=== PATIENT | male | born 1990 | race Asian ===

== ENCOUNTER 2018-06-18 08:20 | Inpatient (IN) | payer BC ==
[~2018-06-18] VITALS: Ht 180.3 cm; Wt 111.1 kg
[2018-06-18 08:20] VITALS: BP_SYST 149
--- NOTE | 2018-06-18 08:20 | NUR ---
BROUGHT BACK TO BED #7 AND TRIAGED. REPORT GIVEN TO FARRAH
--- NOTE | 2018-06-18 08:30 | NUR ---
# 20 gauge angiocath placed to LT AC. Use of asceptic technique. Opsite placed over site. Blood return noted. Flushed with 10 cc of normal saline. No evidence of infiltration noted. Patient tolerated well.
--- NOTE | 2018-06-18 08:30 | NUR ---
Patient comes to ER in personal vehicle, AOx4, verbal and ambulatory. Patient has complaint of RT side lower abdominal pain x4days, patient states that the pain was worse in the past few days but is now at 4/10. Patient is afebrile, last BM was this morning. No other complaint or injury at this time.
[2018-06-18] MEDS ORDERED: NACL 0.9% 1,000 ML IV ONE (08:39)
[2018-06-18] MEDS ORDERED: NACL 0.9% 1,000 ML IV SCH (08:39)
--- NOTE | 2018-06-18 08:41 | NUR ---
DR REAL AT BEDSIDE FOR EVALAUTION
[2018-06-18] MEDS ORDERED: MORPHINE 4 MG/ML INJ. SYRINGE IVP ONE (08:45)
[2018-06-18] MEDS ORDERED: ONDANSETRON HCL 4 MG/2 ML VIAL IVP ONE (08:45)
[2018-06-18] MEDS ORDERED: metroNIDAZOLE 500 mg/NS 100 ML IV ONE (09:30)
[2018-06-18] MEDS ORDERED: cefTRIAXone 1 GM IVPB PREMIX 50 ML IV ONE (09:30)
[2018-06-18 09:33] LABS: BASOPHILS # (AUTO) 0.1 K/uL (0.0-0.2); BASOPHILS % (AUTO) 1.3 % (0.0-2.0); EOSINOPHILS # (AUTO) 0.3 K/uL (0.0-0.4); EOSINOPHILS % (AUTO) 3.8 % (0.0-4.0); HEMATOCRIT 45.9 % (36-54); HEMOGLOBIN 15.9 g/dL (14.0-18.0); LYMPHOCYTES # (AUTO) 1.7 K/uL (1.0-5.5); MEAN CORPUSCULAR HEMOGLOBIN 32 pg (27-31); MEAN CORPUSCULAR HGB CONC 35 % (32-36); MEAN CORPUSCULAR VOLUME 92 fL (79.0-98.0); MONOCYTES # (AUTO) 0.5 K/uL (0.0-1.0); MONOCYTES % (AUTO) 6.9 % (1.7-9.3); NEUTROPHILS # (AUTO) 4.5 K/uL (1.8-7.7); PLATELET COUNT (AUTO) 344 K/uL (130-430); RED BLOOD CELL COUNT(AUTO) 4.98 MIL/uL (4.2-6.2); RED CELL DISTRIBUTION WIDTH 12.6 % (9.0-15.0)
[2018-06-18] MEDS ORDERED: D5/0.45 NS 1,000 ML IV SCH (09:45)
[2018-06-18 09:46] LABS: BILIRUBIN,URINE NEGATIVE (NEGATIVE); BLOOD, URINE NEGATIVE (NEGATIVE); CLARITY/URINE CLEAR (CLEAR); COLOR,URINE YELLOW (YELLOW); GLUCOSE,URINE NEGATIVE (NEGATIVE); KETONES,URINE NEGATIVE (NEGATIVE); LEUKOCYTE ESTERASE ,URINE NEGATIVE (NEGATIVE); NITRITE, URINE NEGATIVE (NEGATIVE); PROTEIN URINE NEGATIVE (NEGATIVE); UROBILINOGEN,URINE 0.2 (0.2-1.0)
[2018-06-18 09:48] LABS: CALCIUM 9.4 mg/dL (8.4-11.0); CREATININE 0.87 mg/dL (0.55-1.30); POTASSIUM 3.8 mmol/L (3.5-5.1)
[2018-06-18 09:51] LABS: PROTHROMBIN TIME 9.9 SECS (9.5-12.5)
--- NOTE | 2018-06-18 10:00 | NUR ---
Medicated per MD orders. IVF infusing with no s/s of infiltration at this time. Will cont to monitor
[2018-06-18 10:05] LABS: ALBUMIN 3.8 g/dL (3.4-4.8); TOTAL BILIRUBIN 0.5 mg/dL (0.0-1.0)
[2018-06-18] MEDS ORDERED: DIPHENHYDRAMINE INJ 50 MG/ML VIAL IVP ONE (10:15)
--- NOTE | 2018-06-18 10:51 | NUR ---
Patient will be admitted to care of DR SUBRAMANIAN. Admitted to MED SURG unit. Will go to room 125B. Belongings list completed. Summary report printed. Report CALLED TO MACKENZIE
--- NOTE | 2018-06-18 10:57 | NUR ---
Patient will be admitted to care of Dr Guthrie. Admitted to [facility] unit. Will go to room [facility] 125B. Belongings list completed. Summary report printed. Report called in to [facility] ALIYAH Elizabeth.
--- NOTE | 2018-06-18 10:58 | NUR ---
ADMISSION NOTE Received patient from ER via sarah, received report from ROSANNA LY. Patient admitted with diagnosis of APPENDICITIS. Patient oriented to hospital routine, call light, toileting and safety-patient verbalized understanding.
[2018-06-18 11:08] VITALS: BP_SYST 143
--- NOTE | 2018-06-18 11:10 | NUR ---
Opening Note received bedside SBAR report from admitting RN, patient resting in bed, patient reports pain is controlled at this time, no acute distress noted, patients mother Estee at bedside, patient educated on use of call light and asked to call for assistance, patient verbalized understanding, call light in reach, patient educated on use on bed alarm for patient safety, patient refusing bed alarm, bed in low and locked position.
--- NOTE | 2018-06-18 11:52 | NUR ---
spoke with physician spoke with Dr. Mary Guthrie, informed him of patient complaint of pain 09/24, new medication orders received, verified with telephone read back.
[2018-06-18 12:00] VITALS: BP_SYST 143
[2018-06-18] MEDS ORDERED: HYDROmorphone 2 MG/ML VIAL IVP PRN ×2 (12:00→15:00)
--- NOTE | 2018-06-18 12:55 | NUR ---
to OR patient taken to OR via gurjase and RN, no acute distress noted.
[2018-06-18] MEDS ORDERED: ROCURONIUM BROMIDE 10 MG/ML (ZEMURON) IV ONE (13:25)
[2018-06-18] MEDS ORDERED: fentaNYL CITRATE/PF 100 MCG/2 ML AMP IVP ONE (13:25)
[2018-06-18] MEDS ORDERED: LR 1,000 ML IV.SOLN IV ONE (13:25)
[2018-06-18] MEDS ORDERED: LIDOCAINE 2%, 20 ML MDV INJ ONE (13:25)
[2018-06-18] MEDS ORDERED: SEVOFLURANE 15 MIN GAS INH ONE (13:25)
[2018-06-18] MEDS ORDERED: GLYCOPYRROLATE 0.2 MG/ML VIAL IJ ONE (13:25)
[2018-06-18] MEDS ORDERED: WATER FOR IRRIGATION,STERILE 1,000 ML IRRIG.SOLN IR ONE (13:25)
[2018-06-18] MEDS ORDERED: NEOSTIGMINE METHYLSULFATE 1 MG/ML, 10 ML VIAL IVP ONE (13:25)
[2018-06-18] MEDS ORDERED: PROPOFOL 200MG/ 20ML VIAL (DIPRIVAN) IV ONE (13:25)
[2018-06-18] MEDS ORDERED: MIDAZOLAM HCL 5 MG/5 ML VIAL IVP ONE (13:25)
[2018-06-18] MEDS ORDERED: BUPIVACAINE /EPINEPHRINE/PF 0.5% 30 ML VIAL INJ ONE (13:25)
[2018-06-18] MEDS ORDERED: ONDANSETRON HCL 4 MG/2 ML VIAL IVP PRN (15:00)
[2018-06-18] MEDS ORDERED: LORazepam 2 MG/ML VIAL IVP PRN (15:00)
[2018-06-18] MEDS: D5/0.45 NS 1,000 ML IV SCH (15:15)
[2018-06-18] MEDS: fentaNYL CITRATE/PF 100 MCG/2 ML AMP IVP PRN ×2 (16:00→16:15)
[2018-06-18] MEDS ORDERED: fentaNYL CITRATE/PF 100 MCG/2 ML AMP ONE (16:06)
[2018-06-18 16:30] VITALS: BP_SYST 152
--- NOTE | 2018-06-18 16:30 | NUR ---
back from OR patient brought back to room via gurney, no acute distress noted, patient states that pain is controlled at this time, IV fluid infusing well, no redness or swelling at IV site, four abdominal incision sites to abdomen, no bleeding, patient provided water and jello, patients mother Estee notified that patient is back in room.
[2018-06-18] MEDS: HYDROmorphone 1 MG INJ. 1 MG/ML AMPUL IVP PRN (17:19)
--- NOTE | 2018-06-18 17:28 | NUR ---
Dietary patient tolerating clear liquids well, patient ate two jello's and water/juice, patient denies any nausea, patient requesting to be advanced to full liquid for dinner, orders to advance diet as tolerated, patient advanced to full liquid diet.
--- NOTE | 2018-06-18 18:15 | NUR ---
PAGED PAGED ALEJANDRA GONZALSE AT [phone] SPOKE WITH OLIVER.
--- NOTE | 2018-06-18 18:39 | NUR ---
Spoke with Physician spoke with Dr. Mary Guthrie, informed him that patient was given 1mg dilaudid at 1719, informed him that patient is currently complaining of pain 8/10 to abdomen, new medication orders received.
[2018-06-18] MEDS ORDERED: HYDROmorphone 1 MG INJ. 1 MG/ML AMPUL IVP ONE (19:00)
--- NOTE | 2018-06-18 19:18 | NUR ---
Closing Note bedside SBAR report given to receiving RN, patient resting in bed, no acute distress noted, patient reports pain is controlled at this time, patients girlfriend at bedside, patient educated on use of call light and asked to call for assistance, patient verbalized understanding, call light in reach, patient educated on use of bed alarm for patient safety, patient refusing bed alarm, bed in low and locked position, care endorsed.
--- NOTE | 2018-06-18 19:30 | NUR ---
INITIAL NOTES RECEIVED HANDOFF REPORT FROM OFFGOING NURSE AT THE BEDSIDE. PATIENT IS RESTING COMFORTABLY IN BED, AWAKE AND ALERT. NO SOB, NO ACUTE DISTRESS, NO COMPLAINTS OF PAIN, BUT STATES HE HAS MILD DISCOMFORT WITH MOVEMENT. BED IS LOCKED, IN THE LOWEST POSITION, 2X SIDE RAILS UP. PATIENT REFUSES BED ALARM AT THIS TIME. CALL LIGHT IS WITHIN REACH. WILL CONTINUE WITH PLAN OF CARE. GIRLFRIEND IS AT THE BEDSIDE. ENCOURAGED PATIENT TO AMBULATE IF ABLE TO TOLERATE, BUT PATIENT REFUSES AT THIS TIME, STATING THAT HE HAS PAIN WITH MOVEMENT. WILL CONTINUE TO ENCOURAGE PATIENT.
[2018-06-18] MEDS: HYDROcodone/ACETAMIN 5-325 MG TAB (NORCO/ VICODIN) PO PRN (19:55)
[2018-06-18 20:00] VITALS: BP_SYST 127
--- NOTE | 2018-06-18 21:00 | NUR ---
patient able to demonstrate proper incentive spirometer use. reaches 2000ml at this time. encouraged patient to use the incentive spirometer frequently.
[2018-06-18] MEDS: metroNIDAZOLE 500 mg/NS 100 ML IV SCH (21:43)
--- NOTE | 2018-06-18 22:35 | NUR ---
PATIENT RESTING COMFORTABLY IN BED WITH EYES CLOSED. BREATHING EVEN AND UNLABORED WITH VISIBLE CHEST RISE AND FALL NOTED. NO SOB, NO ACUTE DISTRESS, NO SIGNS OF PAIN OR FACIAL GRIMACING NOTED. IV ANTIBIOTIC INFUSING VIA IVPB AT THE ORDERED RATE, SEE EMAR. BED IS LOCKED, IN THE LOWEST POSITION, 2X SIDE RAILS UP, BED ALARM IS ON. CALL LIGHT IS WITHIN REACH. GIRLFRIEND IS AT THE BEDSIDE.
[2018-06-19] MEDS: HYDROcodone/ACETAMIN 5-325 MG TAB (NORCO/ VICODIN) PO PRN ×3 (00:06→10:22)
[2018-06-19] MEDS: D5/0.45 NS 1,000 ML IV SCH ×3 (00:06→21:45)
[2018-06-19 00:18] VITALS: BP_SYST 130
--- NOTE | 2018-06-19 00:52 | NUR ---
Patient resting comfortably in bed, breathing even and unlabored, eyes closed. No SOB, no acute distress, no signs of pain or facial grimacing noted. Bed is locked, in the lowest position, 2x side rails up, bed alarm is on. Call light is within reach. Girlfriend is at the bedside, sleeping.
--- NOTE | 2018-06-19 03:12 | NUR ---
patient resting comfortably in bed. eyes closed. breathing even and unlabored with visible chest rise and fall noted. no sob, no acute distress, no signs of pain or facial grimacing noted. Bed is locked, lowest position, 2x side rails up, bed alarm is on. Call light within reach. girlfriend resting at the bedside.
--- NOTE | 2018-06-19 04:45 | NUR ---
Patient ambulated to the restroom and back to bed. Had an episode of BM. Now resting comfortably in bed. Urinal emptied as needed.
[2018-06-19] MEDS: metroNIDAZOLE 500 mg/NS 100 ML IV SCH ×3 (04:52→21:17)
--- NOTE | 2018-06-19 06:34 | NUR ---
Closing notes Patient is resting comfortably in bed, eyes closed. Breathing even and unlabored with visible chest rise and fall noted. No SOB, no acute distress, no signs of pain or facial grimacing noted. IV fluids infusing at the ordered rate, see eMAR for details. Bed is locked, in the lowest position, 2x side rails up. Call light is within reach. Fall and safety precautions maintained. All needs have been met during this shift. Will endorse care to oncoming dayshift nurse. Girlfriend is at the bedside.
[2018-06-19 06:51] LABS: BASOPHILS % (AUTO) 0.4 % (0.0-2.0); EOSINOPHILS # (AUTO) 0.2 K/uL (0.0-0.4); EOSINOPHILS % (AUTO) 2.6 % (0.0-4.0); HEMOGLOBIN 14.3 g/dL (14.0-18.0); LYMPHOCYTES # (AUTO) 1.8 K/uL (1.0-5.5); LYMPHOCYTES % (AUTO) 18.9 % (20.5-51.5); MEAN CORPUSCULAR HEMOGLOBIN 32 pg (27-31); MEAN CORPUSCULAR HGB CONC 34 % (32-36); MEAN CORPUSCULAR VOLUME 93 fL (79.0-98.0); MONOCYTES # (AUTO) 0.6 K/uL (0.0-1.0); MONOCYTES % (AUTO) 6.5 % (1.7-9.3); NEUTROPHILS # (AUTO) 6.7 K/uL (1.8-7.7); NEUTROPHILS % (AUTO) 71.6 % (40.0-70.0); PLATELET COUNT (AUTO) 302 K/uL (130-430); RED BLOOD CELL COUNT(AUTO) 4.51 MIL/uL (4.2-6.2); RED CELL DISTRIBUTION WIDTH 12.5 % (9.0-15.0)
[2018-06-19 07:29] LABS: WHITE BLOOD COUNT (AUTO) 9.4 K/uL (4.8-10.8)
[2018-06-19 07:43] LABS: CALCIUM 9.1 mg/dL (8.4-11.0); CREATININE 0.86 mg/dL (0.55-1.30); POTASSIUM 3.6 mmol/L (3.5-5.1)
--- NOTE | 2018-06-19 07:45 | NUR ---
Opening Note: Patient laying in bed resting, significant other at bedside. Patient denies pain and discomfort at this time. Breathing is even and unlabored with no distress noted. IV patent and intact running IVF per MD orders, no signs of infiltration noted. Safety precautions in place; bed in lowest position, wheels locked, side rails x3, bed alarm activated and call light within reach. No needs at this time. Will continue to monitor.
[2018-06-19 08:23] VITALS: BP_SYST 128
[2018-06-19] MEDS: HYDROmorphone 1 MG INJ. 1 MG/ML AMPUL IVP PRN ×2 (08:26→13:40)
[2018-06-19] MEDS: cefTRIAXone 1 GM IVPB PREMIX 50 ML IV SCH (10:09)
--- NOTE | 2018-06-19 11:42 | NUR ---
Rounds: Patient in bed resting, significant other at bedside. IVF bag changed, no signs of infiltration. Morning medications tolerated well. Safety precautions in place and call light within reach. No needs at this time. Will continue to monitor.
[2018-06-19 12:33] VITALS: BP_SYST 126
--- NOTE | 2018-06-19 14:13 | NUR ---
Rounds: Patient in bed resting. Patient denies pain and discomfort. Will continue to monitor.
--- NOTE | 2018-06-19 16:17 | NUR ---
Rounds: Patient in bed resting. Patient denies pain and discomfort. Breathing is even and unlabored. IVF infusing with no signs of infiltration. Safety precautions in place and call light within reach. Will continue to monitor.
[2018-06-19 17:15] VITALS: BP_SYST 132
[2018-06-19] MEDS ORDERED: HYDROcodone/ACETAMIN 10-325 MG TAB PO PRN (17:15)
--- NOTE | 2018-06-19 17:34 | NUR ---
Incentive Spirometer: Patient educated on use of incentive spirometer. Patient verbalized understanding and return demonstrated.
--- NOTE | 2018-06-19 18:50 | NUR ---
Closing Note: Patient laying in bed resting, significant other at bedside. Patient denies pain and discomfort at this time. Breathing is even and unlabored with no distress noted. IV patent and intact running IVF per MD orders, no signs of infiltration noted. Safety precautions in place; bed in lowest position, wheels locked, side rails x3, bed alarm activated and call light within reach. All needs met. Will endorse plan of care to NOC, nurse.
[2018-06-19 19:00] VITALS: BP_SYST 133
--- NOTE | 2018-06-19 19:00 | NUR ---
change of shift.pt.present s/p surgery;appendectomy.incision sites x3.incisions open to air.iv access;iv fluids infusing. pt's diet status advanced;regular diet;pt.presents food from home.no c/o pain,nausea.general status stable.respiratory status stable.call light/telephone w/in the reach of the pt.
[2018-06-19 20:00] VITALS: BP_SYST 133
--- NOTE | 2018-06-19 20:00 | NUR ---
pt.assessed.v/s assessed;values w/i normal limits.i have noted the o2-sat%=93-94%@hussein air.i have apprised the pt./and demonstrated that the pt.to attempt deep breathing 2-3 x pr hour.pt.is utilizing the incentive spirometer.i have assessed;auscultated the abdomen bowel sounds.i have inquired if the pt.presents abdomen gas build up.pt.has stated yes.to attend to bowel gas relief.i have apprised the pt.that snacks/beverages are available w/i the shift.no request posited@this hour.general status stable.respiratory status stable. pt.capable to reposition self.call light/telephone placed w/in the reach of the pt.
[2018-06-19] MEDS: SIMETHICONE 80 MG TAB.CHEW PO SCH (21:12)
[2018-06-19] MEDS: OXYCODONE/ACETAMINOPHEN 5-325 TABLET PO PRN (21:15)
--- NOTE | 2018-06-19 21:15 | NUR ---
2100p medications administered.percocet;10/325mg po:to f/u re;pain medication efficacy per pain mgx protocol.i paged ;a i apprised of the pt's status:abdomen gas build-up. ordered simethicone:80mg po ac/hs. i have administered the initial dose.no additional requests@this hour.
--- NOTE | 2018-06-19 22:00 | NUR ---
pt.assessed.pt.presents quiescent affect;calm.viewing tv programing via telephone.i have changed the iv fluids bag. no requests posited @this hour.pt.capable to reposition self.general status stable.respiratory status stable:o2-sat% =95%@room air.call light /telephone placed w/in the reach of the pt.
--- NOTE | 2018-06-20 | NUR ---
pt.assessed.v/s assessed;values w/in normal limits.i inquired r;pain mgx.pt.stated pain present but tolerable.i have inquired re;abdomen gas discomfort pt.stated the simethicone provided relief.general status stable.respiratory status stable:o2-sat% =95%.pt.capable to reposition self.call light/telephone w/in the reach of the pt.
[2018-06-20 01:02] VITALS: BP_SYST 129
--- NOTE | 2018-06-20 02:00 | NUR ---
pt.assessed.pt.presents quiescent affect;calm,somnolent.iv fluid access assessed;intact;patent.iv fluids infusing. general status stable.respiratory status stable.call light/telephone w/in the reach of the pt.
--- NOTE | 2018-06-20 03:58 | NUR ---
pt.assessed.pt.presents quiescent affect;calm,somnolent.pt.capable to reposition self.iv fluids infusing. general status stable.respiratory status stable.call light/telephone w/in the reach of the pt.
[2018-06-20] MEDS: OXYCODONE/ACETAMINOPHEN 5-325 TABLET PO PRN (04:22)
[2018-06-20] MEDS: metroNIDAZOLE 500 mg/NS 100 ML IV SCH (05:35)
[2018-06-20 06:43] LABS: BASOPHILS % (AUTO) 0.5 % (0.0-2.0); EOSINOPHILS # (AUTO) 0.4 K/uL (0.0-0.4); EOSINOPHILS % (AUTO) 4.7 % (0.0-4.0); HEMATOCRIT 43.1 % (36-54); HEMOGLOBIN 15.2 g/dL (14.0-18.0); LYMPHOCYTES # (AUTO) 1.3 K/uL (1.0-5.5); LYMPHOCYTES % (AUTO) 17.5 % (20.5-51.5); MEAN CORPUSCULAR HEMOGLOBIN 32 pg (27-31); MEAN CORPUSCULAR HGB CONC 35 % (32-36); MEAN CORPUSCULAR VOLUME 92 fL (79.0-98.0); MONOCYTES # (AUTO) 0.6 K/uL (0.0-1.0); MONOCYTES % (AUTO) 7.4 % (1.7-9.3); NEUTROPHILS # (AUTO) 5.2 K/uL (1.8-7.7); NEUTROPHILS % (AUTO) 69.9 % (40.0-70.0); PLATELET COUNT (AUTO) 311 K/uL (130-430); RED BLOOD CELL COUNT(AUTO) 4.69 MIL/uL (4.2-6.2); RED CELL DISTRIBUTION WIDTH 12.3 % (9.0-15.0); WHITE BLOOD COUNT (AUTO) 7.5 K/uL (4.8-10.8)
--- NOTE | 2018-06-20 06:44 | NUR ---
pt.assessed.pt.presents quiescent affect;calm,somnolent.pt had requested medication;pain.i have administered percocet;5/325mg po. i have administered th 0600a dose;flagyl;abx;ivpb.no requests posited per pt@this hour.general status stable.respiratory status stable. pt.capable to reposition self.call light/telephone w/in the reach of the pt.
[2018-06-20 06:57] LABS: CALCIUM 8.7 mg/dL (8.4-11.0); CREATININE 0.94 mg/dL (0.55-1.30); POTASSIUM 3.9 mmol/L (3.5-5.1)
[2018-06-20 07:08] LABS: ALBUMIN 3.2 g/dL (3.4-4.8); TOTAL BILIRUBIN 0.5 mg/dL (0.0-1.0)
--- NOTE | 2018-06-20 07:29 | NUR ---
Opening Note received bedside SBAR report from police shift commander RN, patient resting in bed, no acute distress noted, patient educated on use of call light and asked to call for assistance, patient verbalized understanding, call light in reach, patient educated on use of bed alarm for patient safety, patient refusing bed alarm, bed in low and locked position.
[2018-06-20 08:00] VITALS: BP_SYST 130
[2018-06-20] MEDS: SIMETHICONE 80 MG TAB.CHEW PO SCH (08:18)
[2018-06-20] MEDS: D5/0.45 NS 1,000 ML IV SCH (08:19)
[2018-06-20] MEDS: cefTRIAXone 1 GM IVPB PREMIX 50 ML IV SCH (08:19)
--- NOTE | 2018-06-20 09:44 | NUR ---
RN Rounds patient sleeping in bed, respirations even and unlabored, no acute distress noted, no additional needs at this time.
[2018-06-20] MEDS ORDERED: HYDR-4274 PO (10:10)
[2018-06-20 10:38] VITALS: BP_SYST 134
--- NOTE | 2018-06-20 10:59 | NUR ---
Discharge patient provided with discharge packet and instructions, patient instructed to follow up with Dr. Guthrie in one week and Dr. Garcia in two weeks, patient verbalized understanding, IV catheter removed, catheter intact, no bleeding, hospital ID band removed, no acute distress noted, steady gait noted, all belongings sent with patient, patient taken to parking lot via wheelchair. Addendum: 06/20/18 at 1536 by Alessandra Flores RN add: patient provided with written prescription.
== END 2018-06-20 10:59 | disposition home or self-care (01) | DRG 343 ==
LOC: SED 08:20 → SMU 09:35
PROVIDERS: ADMIT Preventive Medicine Preventive Medicine/Occupational Environmental Medicine; ATTEND Preventive Medicine Preventive Medicine/Occupational Environmental Medicine
PROC: 0DTJ4ZZ Resection of Appendix, Percutaneous Endoscopic Approach (ICD-10-PCS; principal; 2018-06-18 13:30)
DX: K35.80 Unspecified acute appendicitis (principal); R73.9 Hyperglycemia, unspecified; Z88.8 Allergy status to other drugs, medicaments and biological substances; Z88.5 Allergy status to narcotic agent; R03.0 Elevated blood-pressure reading, without diagnosis of hypertension
CPT/HCPCS: 36415; 71045; 80048; 80053; 81003; 82150-TC; 83605; 83690-TC; 85025; 85610-TC; 85730-TC; 86886; 86900; 86901; 87040-TC; 87081; 88304; 94010; 96365; 96367; 96375; 99285; C1727; J0696; J1170; J1200; J2001; J2250; J2270; J2405; J2704; J2710; J3010; J3490; J7030; J7120

== ENCOUNTER 2018-07-01 08:13 | Outpatient (CLI) | payer BC ==
[~2018-07-01 08:13] MED LIST: HYDR-4274 PO
[2018-07-01 10:47] LABS: BILIRUBIN,URINE NEGATIVE (NEGATIVE); BLOOD, URINE NEGATIVE (NEGATIVE); CLARITY/URINE SL HAZY (CLEAR); COLOR,URINE YELLOW (YELLOW); GLUCOSE,URINE NEGATIVE (NEGATIVE); KETONES,URINE NEGATIVE (NEGATIVE); LEUKOCYTE ESTERASE ,URINE NEGATIVE (NEGATIVE); NITRITE, URINE NEGATIVE (NEGATIVE); PH,URINE 5.5 (5.0-8.0); PROTEIN URINE NEGATIVE (NEGATIVE); UROBILINOGEN,URINE 0.2 (0.2-1.0)
[2018-07-01 10:55] LABS: BASOPHILS % (AUTO) 0.6 % (0.0-2.0); EOSINOPHILS # (AUTO) 0.3 K/uL (0.0-0.4); EOSINOPHILS % (AUTO) 3.7 % (0.0-4.0); HEMATOCRIT 51.1 % (36-54); HEMOGLOBIN 17.6 g/dL (14.0-18.0); LYMPHOCYTES # (AUTO) 1.8 K/uL (1.0-5.5); LYMPHOCYTES % (AUTO) 26.2 % (20.5-51.5); MEAN CORPUSCULAR HEMOGLOBIN 32 pg (27-31); MEAN CORPUSCULAR HGB CONC 35 % (32-36); MEAN CORPUSCULAR VOLUME 92 fL (79.0-98.0); MONOCYTES # (AUTO) 0.3 K/uL (0.0-1.0); MONOCYTES % (AUTO) 4.9 % (1.7-9.3); NEUTROPHILS # (AUTO) 4.3 K/uL (1.8-7.7); NEUTROPHILS % (AUTO) 64.6 % (40.0-70.0); PLATELET COUNT (AUTO) 415 K/uL (130-430); RED BLOOD CELL COUNT(AUTO) 5.55 MIL/uL (4.2-6.2); RED CELL DISTRIBUTION WIDTH 12.4 % (9.0-15.0); WHITE BLOOD COUNT (AUTO) 6.7 K/uL (4.8-10.8)
[2018-07-01 11:16] LABS: ALBUMIN 4.2 g/dL (3.4-4.8); CALCIUM 9.8 mg/dL (8.4-11.0); CREATININE 0.88 mg/dL (0.55-1.30); FREE T4 (FREE THYROXINE) 0.9 ng/dL (0.6-1.6); POTASSIUM 4.1 mmol/L (3.5-5.1); THYROID STIMULATING HORMONE 1.16 uIu/mL (0.34-4.82); TOTAL BILIRUBIN 0.7 mg/dL (0.0-1.0)
== END 2018-07-01 21:04 | disposition home or self-care (01) ==
LOC: SUS 08:13
PROVIDERS: ATTEND Preventive Medicine Preventive Medicine/Occupational Environmental Medicine
DX: R16.0 Hepatomegaly, not elsewhere classified (principal)
CPT/HCPCS: 36415; 76700-TC; 80053; 80061; 81003; 82306; 83735-TC; 84100-TC; 84439; 84443-TC; 84480; 85025